=== PATIENT | female | born 1960 | race Caucasian/White ===

== ENCOUNTER 2024-02-28 10:29 | Emergency (ER) | payer BC ==
[~2024-02-28] VITALS: Ht 160 cm; Wt 65.0 kg
[2024-02-28 10:38] VITALS: TEMP 98.5; O2SAT 97
[2024-02-28 12:27] VITALS: BP 134/78; PULSE 76; RESP 18
[2024-02-28] MEDS: METOCLOPRAMIDE HCL 10MG/2ML VIAL IM ONE (12:27)
[2024-02-28] MEDS: KETOROLAC 30MG/ML VIAL IM STA (12:27)
[2024-02-28 13:15] LABS: GLUCOSE URINE NEGATIVE (NEGATIVE); KETONES URINE NEGATIVE (NEGATIVE)
[2024-02-28 13:40] LABS: BASOPHILS % 0.4 % (0.0-2.0); CHLORIDE 104 mEq/L (98-107); EOSINOPHILS % 0.2 % (0.0-5.0); HEMATOCRIT. 39.7 % (36.0-48.0); HEMOGLOBIN. 13.3 g/dL (12.0-16.0); LYMPHOCYTES % 10.5 % (20.0-50.0); MEAN CORPUSCULAR HGB CONC 33.5 g/dL (31.0-37.0); MEAN CORPUSCULAR VOLUME 92.8 fL (81.0-99.0); MEAN PLATELET VOLUME 7.4 fl (7.4-10.4); MONOCYTES % 7.6 % (2.0-8.0); NEUTROPHILS % 81.3 % (40.0-76.0); PLATELET 240 x1000/uL (130-400); POTASSIUM 4.3 mEq/L (3.5-5.1); RED BLOOD CELL COUNT 4.28 mill/uL (4.2-5.4); RED CELL DISTRIBUTION WIDTH 14.6 % (11.6-14.6); SODIUM 136 mEq/L (136-145)
[2024-02-28 13:41] LABS: CALCIUM 9.4 mg/dL (8.7-10.4); CARBON DIOXIDE 22 mEq/L (21-32)
[2024-02-28 13:46] LABS: GLUCOSE 154 mg/dL (70-105); UREA NITROGEN BLOOD 11 mg/dL (9-23)
[2024-02-28 13:52] LABS: CLARITY URINE CLEAR (CLEAR); COLOR URINE YELLOW (YELLOW); PROTEIN URINE TRACE (NEGATIVE); SPECIFIC GRAVITY URINE 1.015 (1.005-1.030)
[2024-02-28 13:53] LABS: LEUKOCYTE ESTERASE URINE NEGATIVE (NEGATIVE); NITRITE URINE NEGATIVE (NEGATIVE); OCCULT BLOOD URINE 2+ (NEGATIVE); UROBILINOGEN URINE 0.2 E.U./dL (0.2-1.0)
[2024-02-28 13:54] LABS: TROPONIN I HIGH SENSITIVITY < 4 ng/L (3.0-34)
[2024-02-28 13:57] LABS: BACTERIA URINE FEW; SQUAMOUS EPITHELIAL CELL URINE 1+ /lpf (RARE/1+); YEAST URINE NONE SEEN
[2024-02-28] MEDS ORDERED: NAPR-681 PO (15:42)
[2024-02-28] MEDS ORDERED: ALBU18HF2 IH (15:42)
[2024-02-28] MEDS ORDERED: D-ME473S50 PO (15:42)
== END 2024-02-28 16:04 | disposition home or self-care (01) ==
LOC: ER 10:29
DX: J20.9 Acute bronchitis, unspecified (principal); B97.89 Other viral agents as the cause of diseases classified elsewhere; Z20.822 Contact with and (suspected) exposure to COVID-19
CPT/HCPCS: 99285; 71045; 87426; 80048; 81003; 87430; 83880; 85025; 84484; 87070; 87804 ×2; 36415; 93005; 96372; J1885; J2765